=== PATIENT | female | born 1950 | race Caucasian/White ===

== ENCOUNTER 2016-04-29 15:15 | Emergency (ER) | payer BC ==
[~2016-04-29] VITALS: Wt 69.0 kg
--- NOTE | 2016-04-29 16:47 | ERD ---
ER Documentation Chief Complaint Date/Time DATE: 04/29/16 TIME: 16:35 Chief Complaint HEADACHE SINCE THIS MORNING . NO NEURO DEF. NAUSEA NO VOMITING HPI 65 y/o female presents to ED for headache that started this morning. Patient stated that pain started on her left neck at around 6:30 AM that woke her up, pain was described as stabbing 10/10 in rate. Her frontal/bilateral temporal headache started at around 11:30 AM, pain was described as severe, added that she never had this headache before. She also added that she has left upper back pain that is described as achy with a rate of 8/10 and worse on movement. Reports that she feels nauseous but no vomiting. Reports mild dizziness but does not feel like surrounding is moving. She also stated that she feels like associated but no vomiting. Denies loss of consciousness, head trauma, blurry vision, changes in vision, photophobia, ear pain, throat pain, difficulty swallowing, cough, hemoptysis, abdominal pain, back pain, loss of appetite, vomiting, hematochezia, diarrhea, constipation, urinary symptoms, bladder and bowel incontinences, extremity weakness, extremity tenderness, numbness or tingling sensation, difficulty walking, recent travel, recent exposure to illness, recent antibiotic use in the last 3 months, fever, chills. Allergy: NKA PMH: High cholesterol Family medical history: Denies Medications: Unknown Surgery: Primary Social History: Not working at this time Denies smoking, use of alcohol, use of illegal drugs. ROS All systems reviewed and are negative except as per history of present illness. Allergies Allergies: Coded Allergies: No Known Allergy (Unverified , 04/29/16) PMhx/Soc High cholesterol Medical and Surgical Hx: pt denies Medical Hx, pt denies Surgical Hx Hx Alcohol Use: No Hx Substance Use: No Hx Tobacco Use: No Smoking Status: Never smoker FmHx Denies Physical Exam Vitals Vital Signs Date Time Temp Pulse Resp B/P Pulse Ox O2 Delivery O2 Flow Rate FiO2 04/29/16 15:36 98.5 93 20 140/82 99 Physical Exam CONSTITUTIONAL: Generalized weakness HEAD: Normocephalic; atraumatic. EYES: Conjunctiva clear, sclera non-icteric, EOM intact. PERRL Ears: Hearing intact. EACs clear, TMs non-bulging, non-inflamed, translucent & mobile, ossicles normal appearance, No obstructions, no erythema, no discharges Nose: No obstructions. No polyps. No external lesions. Mucosa non-inflamed. No external lesions, septum and turbinates normal. No rhinorrhea. No discharges. Frontal sinus is non-tender to palpation. Maxillary sinus is non-tender to palpation. MOUTH: Moist mucous membranes, no lesion, no obstructions, no vesicles, no thrush, patent airway Throat: Uvula in midline. Right tonsil is +1 with no erythema, no exudate. Left tonsil is +1 with no erythema, no exudate. Tolerating secretions well. Good gag reflex. Patent airway. Neck: Supple, without lesions, bruits, or adenopathy. No mass. Thyroid non- enlarged and non-tender to palpation. CHEST: Symmetrical chest. Respirations even and not labored. No retractions noted. CARDIOVASCULAR: Normal S1, S2. RRR. No murmurs, gallops. RESPIRATORY: Normal chest excursion with respiration; breath sounds clear and equal bilaterally; no wheezes, rhonchi, or rales. Breathing even and unlabored. Speaking in clear, full, and complete sentences w/ ease. ABDOMEN: Normal bowel sounds normal. Soft, round, non-distended, non-guarding, no tenderness, no rebound, no organomegaly, no masses, no pulsating abdominal mass. No hernia. No peritoneal signs. : No CVA tenderness. BACK: Symmetrical shoulder. Spine is midline without deformity, tenderness. No evidence of trauma or deformity. PELVIS: Stable pelvis. No evidence of trauma or deformity. MUSCULOSKELETAL: Normal gait and station. No misalignment, asymmetry, crepitation, defects, tenderness, masses, effusions, decreased range of motion, instability, atrophy or abnormal strength or tone in the head, spine, ribs, pelvis or extremities. No calf tenderness. Noted mild tenderness to left neck. Full range of motion of neck but with mild discomfort on the left side. Mild tenderness to left neck to palpation. NEUROVASCULAR: Distal pulses are present. Pedal pulse are present, equal, and normal. Capillary refills are < 2 seconds. NEUROLOGIC: Alert and oriented x4. Speaks full and clear sentences. Generalized weakness. Cranial Nerves II-XII normal. Sensation to pain, touch, and proprioception normal. No neurologic deficits. Romberg test is negative. PSYCHOLOGICAL: The patients mood and manner are appropriate. No hallucinations , delusions. Not SI. Not HI. Has the capacity to decide for self SKIN: Normal for age and ethnicity; warm; dry; good turgor; no apparent lesions or exudates. No rashes, hives, discoloration. Intact. Results 24 hrs Laboratory Tests Test 04/29/16 16:50 Troponin I < 0.012ng/ml Current Medications Medications (Trade) Dose Ordered Sig/Vikram Route PRN Reason Start Time Stop Time Status Last Admin Dose Admin Sodium Chloride (NS) 1,000 ml @ 1,000 mls/hr Q1H STAT IV 04/29/16 19:10 04/29/16 20:09 04/29/16 19:19 Morphine Sulfate (morphine) 4 mg ONCE STAT IV 04/29/16 19:10 04/29/16 19:16 DC 04/29/16 19:19 Ondansetron HCl 4 mg 4 mg ONCE STAT IV 04/29/16 19:10 04/29/16 19:16 DC 04/29/16 19:19 Nicardipine HCl (Cardene Iv) 200 ml @ 50 mls/hr TITRATE IV 04/29/16 19:30 Procedures/MDM Examination: MUSCULOSKELETAL: Normal gait and station. No misalignment, asymmetry, crepitation, defects, tenderness, masses, effusions, decreased range of motion, instability, atrophy or abnormal strength or tone in the head, spine, ribs, pelvis or extremities. No calf tenderness. Noted mild tenderness to left neck. Full range of motion of neck but with mild discomfort on the left side. Mild tenderness to left neck to palpation. NEUROLOGIC: Alert and oriented x4. Speaks full and clear sentences. Generalized weakness. Cranial Nerves II-XII normal. Sensation to pain, touch, and proprioception normal. No neurologic deficits. Romberg test is negative. Case and medical management was discussed with supervising doctor, Dr. Balwinder Solano, who agreed with my diagnostic tests. Disease process, medical treatment was explained to the patient and family member. They verbalized understanding and agreed with the diagnostic tests, medical treatment, and follow-up care. EKG: Normal sinus rhythm. No evidence of acute myocardial infarction. Radiology: CT head: FINDINGS: There is age appropriate central and peripheral atrophy. There is no midline shift. There is no definite acute stroke. There is a small amount of hyperdensity in the left sylvian fissure compatible with acute subarachnoid hemorrhage. There is no hemorrhage within the basilar cisterns. There is no intraparenchymal hemorrhage. Visualized paranasal sinuses are clear. IMPRESSION: Small amount of subarachnoid hemorrhage in the left sylvian fissure. In the absence of trauma, an aneurysm rupture cannot be excluded. Recommend CT angiogram of of the head for further evaluation. CT cervical spine: FINDINGS: No fracture is identified. There is maintenance of height of the vertebral bodies. There is mild reversal of the normal cervical lordosis. Alignment is otherwise maintained. There is no spondylolisthesis. Limited evaluation of the canal contents is unremarkable. No significant degenerative changes are noted. Prevertebral soft tissues are unremarkable. IMPRESSION: 1. No fracture or subluxation. 2. Mild reversal of the normal cervical lordosis most commonly seen with spasm versus positioning. Blood works Treatment: Re-evaluation: Patient needs assistance in walking. Case, patient's history, my physical findings, diagnostic test results were discussed with Dr. Tunde Ramsay who accepted the care. Consultation: Differential diagnosis: Subarachnoid hemorrhage versus stroke/CVA versus migraine versus tension headache versus cluster headache versus meningitis versus acute hypertensive crisis versus cervical myofascial pain versus cervical disc disease versus acute myocardial infarction versus chest pain Medical decision [id number] y/o female presents to ED for headache that started this morning. Patient stated that pain started on her left neck at around 6:30 AM that woke her up, pain was described as stabbing 10/10 in rate. Her frontal/ bilateral temporal headache started at around 11:30 AM, pain was described as severe, added that she never had this headache before. She also added that she has left upper back pain that is described as achy with a rate of 8/10 and worse on movement. Reports that she feels nauseous but no vomiting. Reports mild dizziness but does not feel like surrounding is moving. She also stated that she feels like associated but no vomiting. Patient's complaint, history, presentation, physical findings, diagnostic test results are consistent with my final diagnosis of subarachnoid hemorrhage. During physical assessment prior to diagnostic test results patient's neurologic exam is within normal limits and has steady gait, Romberg test is negative but after that diagnostic test results I did a re-evaluation and patient needs assistance in walking. Departure Diagnosis: Primary Impression: Headache Additional Impression: Subarachnoid hemorrhage Condition: Critical OKSANA MAZARIEGOS Apr 29, 2016 16:47
--- NOTE | 2016-04-29 18:50 | RADRPT ---
PROCEDURE: CT cervical spine without contrast CLINICAL INDICATION: Pain TECHNIQUE: CT scan of the cervical spine was performed on a multidetector scanner. No IV contrast was administered. Coronal and sagittal reformatted images were obtained from the axial source imag es. Images were reviewed on a high-resolution PACS workstation. Exam CTDlvol = 22 mGy and DLP = 443 mGy-cm. COMPARISON: None available FINDINGS: No fracture is identified. There is maintenance of height of the vertebral bodies. There is mild r eversal of the normal cervical lordosis. Alignment is otherwise maintained. There is no spondyloli sthesis. Limited evaluation of the canal contents is unremarkable. No significant degenerative kendrick nges are noted. Prevertebral soft tissues are unremarkable. IMPRESSION: 1. No fracture or subluxation. 2. Mild reversal of the normal cervical lordosis most commonly seen with spasm versus positioning. RPTAT: HMVK .Elieser Waggoner MD, Date Time Electronically viewed and signed by .Elieser Waggoner MD, MD on 04/29/2016 18:50 .K/
--- NOTE | 2016-04-29 18:58 | RADRPT ---
PROCEDURE: CT Brain without IV contrast. CLINICAL INDICATION: Headache. TECHNIQUE: A CT of the brain was performed on a multislice detector CT scanner utilizing axial sec tions from the skull base through the vertex without contrast. Images were reviewed on a high-resolu [employer] PACS workstation. Exam CTDlvol = 44 mGy-cm and DLP = 630 mGy-cm. COMPARISON: None available FINDINGS: There is age appropriate central and peripheral atrophy. There is no midline shift. There is no de finite acute stroke. There is a small amount of hyperdensity in the left sylvian fissure compatible with acute subarachnoid hemorrhage. There is no hemorrhage within the basilar cisterns. There is no intraparenchymal hemorrhage. Visualized paranasal sinuses are clear. IMPRESSION: Small amount of subarachnoid hemorrhage in the left sylvian fissure. In the absence of trauma, an a neurysm rupture cannot be excluded. Recommend CT angiogram of of the head for further evaluation. Findings discussed with Dr. Kelley 04/29/2016 at 18:55 RPTAT: HMVK .Elieser Waggoner MD, MD Date Time Electronically viewed and signed by .Elieser Waggoner MD, MD on 04/29/2016 18:58 .K/
[2016-04-29] MEDS ORDERED: SOD CHLORIDE 0.9% 1,000 ML IV STA (19:10)
[2016-04-29] MEDS ORDERED: ONDANSETRON 4 MG INJ IV STA (19:10)
[2016-04-29] MEDS ORDERED: morphine 4 MG/ML VIAL IV STA (19:10)
[2016-04-29] MEDS ORDERED: niCARdipine-D5W 0.1MG/ML DRIP 200 ML IV SCH (19:30)
[2016-04-29] MEDS ORDERED: IOHEXOL 100 ML ONE (19:43)
[2016-04-29] MEDS ORDERED: SOD CHLORIDE 0.9% 100 ML ONE (19:43)
[2016-04-29 20:08] LABS: BASOPHILS % 0.5 % (0.0-2.0); EOSINOPHILS % 0.1 % (0.0-7.0); HEMATOCRIT 37.1 % (37.0-47.0); HEMOGLOBIN 12.6 g/dl (12.0-16.0); INR 1.09; LYMPHOCYTES # 2.5 10^3/ul (0.8-2.9); LYMPHOCYTES % 26.6 % (15.0-51.0); MEAN CORPUSCULAR HEMOGLOBIN 30.4 pg (29.0-33.0); MEAN CORPUSCULAR HGB CONC 34.1 g/dl (32.0-37.0); MEAN CORPUSCULAR VOLUME 89.3 fl (82.0-101.0); MEAN PLATELET VOLUME 8.4 fl (7.4-10.4); MONOCYTE # 0.5 10^3/ul (0.3-0.9); MONOCYTES % 5.1 % (0.0-11.0); NEUTROPHIL # 6.4 10^3/ul (1.6-7.5); NEUTROPHILS % 67.7 % (39.0-77.0); PLATELET COUNT 206 10^3/UL (140-440); PROTIME 14.1 Sec (12.2-14.2); PT RATIO 1.1; RED BLOOD COUNT 4.15 10^6/ul (4.20-5.40); RED CELL DISTRIBUTION WIDTH 12.8 % (11.5-14.5); UNCORRECTED WBC 9.4 10^3/ul (4.8-10.8); WHITE BLOOD COUNT 9.4 10^3/ul (4.8-10.8)
[2016-04-29 20:09] LABS: CONDITION 1
--- NOTE | 2016-04-29 20:19 | RADRPT ---
PROCEDURE: CT Angio Brain with contrast. CLINICAL INDICATION: Subarachnoid hemorrhage TECHNIQUE: CT angiography of the head was performed. High resolution serial axial CT images of t he head were obtained after the administration of 85 cc Omnipaque 350 IV contrast material. 3D, sagi ttal and coronal reconstruction images were produced. Exam CTDlvol = 127 mGy and DLP = 497 mGy-cm. COMPARISON: CT brain 04/29/2016 FINDINGS: All major intracranial arteries are identified. There is a 7.3 x 6.1 x 9 mm saccular aneurysm at the distal aspect of the left M1 segment of the left middle cerebral artery. Interim is oriented anteri or and inferior from the artery. No vascular malformation is identified. No pathologic stenosis is identified. There is a dominant left vertebral artery. Limited evaluation of the intracranial jeff nts is unremarkable. 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 Findings discussed with Dr. Ramsay 04/29/2016 at 20:15 RPTAT: HMVK .Elieser Waggoner MD, MD Date Time Electronically viewed and signed by .Elieser Waggoner MD, on 04/29/2016 20:19 .K/
--- NOTE | 2016-04-29 20:30 | RADRPT ---
PROCEDURE: XR Chest. CLINICAL INDICATION: Abdominal pain TECHNIQUE: AP Portable chest. COMPARISON: No pertinent prior examinations were submitted for comparison. FINDINGS: There is mild cardiomegaly. The lungs are clear. The osseous structures are unremarkable. IMPRESSION: No acute findings. RPTAT: HIKT .Anjel Zurita MD, Date Time Electronically viewed and signed by .Anjel Zurita MD, on 04/29/2016 20:30 .T/
--- NOTE | 2016-04-29 20:59 | EN ---
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 She states this headache is new , denies previous episodes, and states it has been constant since it began. She states she has been feeling dizzy and nauseous since the headache began. Early this morning when she woke up she did have left shoulder and left trapezius pain although denied headache. She denies fevers or chills, no weakness in her arms or legs, no slurred speech, no blurry vision. CT scan of the brain was performed revealing acute left subarachnoid hemorrhage with blood in the sylvian fissure. Past medical history: Hypertension Physical exam: GENERAL: Well-developed, well-nourished, moderate disc HEENT: Moist mucous membranes, pink conjunctiva, no cervical spine tenderness or step-off deformities, no goiter, no jaundice or icterus, extraocular movements intact without pain. No submandibular induration, and no pharyngeal erythema NEURO: Alert and oriented 3, cranial nerves II through XII intact bilaterally, pupils equal round reactive to light, no focal deficits or facial asymmetry, sensation intact distally Strength 5/5 in upper and lower extremities bilaterally, there is no pronator drift, no nystagmus, no cerebellar signs CARDIAC: Regular rate and rhythm, no murmurs rubs or gallops LUNGS: Clear bilaterally no wheezing crackles or stridor ABDOMEN: Soft nontender, no guarding, no rigidity, no rebound, no psoas sign no obturator sign. Normoactive bowel sounds SKIN: Warm and dry to touch, no abrasions, contusions, or hematomas, no lacerations, no ecchymosis, no target lesions, and without ulcers EXTREMITIES: No clubbing cyanosis or edema, calves are bilaterally symmetrical, no Homans sign, no popliteal cord sign. Distal pulses equal and bilateral PSYCH: Normal affect without agitation or irritability Medical decision making: IV line was established patient was placed on surveillance monitor rhythm strip revealed a sinus rhythm at about 80 bpm with upright P and T waves. I administered 1 L normal saline intravenously, morphine 4 mg IV, and Zofran 4 mg IV with good effect. Nicardipine drip was also ordered by me to be administered if systolic blood pressure goes above 160 mmHg. EKG performed, read by me: 73 bpm, normal sinus rhythm, normal axis, no acute ST segment changes, narrow QRS complex, with good R-wave progression in precordial leads. I ordered immediate CT angiogram of the cerebrum, it revealed blood in the left sylvian fissure and a left MCA trifurcation saccular aneurysm measuring 9 x 7 x 6 mm. Emergent neurosurgical consultation was obtained by me. I spoke to Dr. Burden regarding the CT findings and the patient's symptoms, he agreed to have the patient transferred to [facility] and treated neuro endovascularly. Critical Care: Time: 33 minutes, this was time separate from other procedures. Treatments/Evaluations: Close monitoring and treatment of unstable vital signs, cardiorespiratory, and neurologic status, while maintaining tight balance of fluid, respiratory, and cardiac interventions. CBC and electrolytes were normal, liver function tests were normal, coagulation profile revealed an INR of 1, troponin was negative. Urine analysis is also been ordered results are pending I will follow-up. Patient is pending transport to [facility] at this time, headache has resolved, vital signs remained normal. Diagnostic impression: Acute left MCA ruptured aneurysm and subarachnoid hemorrhage LIN NORTH MD Apr 29, 2016 20:59
[2016-04-29 21:19] LABS: ALBUMIN 3.9 g/dl (3.3-4.9)
[2016-04-29 21:20] LABS: CHLORIDE 105 mmol/L (97-110); SODIUM 144 mmol/L (135-144)
[2016-04-29 21:22] LABS: ALBUMIN/GLOBULIN RATIO 1.25; ALKALINE PHOSPHATASE 81 IU/L (42-121); ANION GAP 15 (8-16); ASPARTATE AMINO TRANSFERASE 28 IU/L (15-46); BILIRUBIN,INDIRECT 0.2 mg/dl (0-1.1); BILIRUBIN,TOTAL 0.2 mg/dl (0.2-1.3); CARBON DIOXIDE 28 mmol/L (21-31); CREATININE 0.63 mg/dl (0.44-1.00)
[2016-04-29 21:23] LABS: ALANINE AMINOTRANSFERASE 27 IU/L (13-69); BLOOD UREA NITROGEN 13 mg/dl (7-20); CALCIUM 9.4 mg/dl (8.4-10.2); GLUCOSE 91 mg/dl (70-220)
[2016-04-29 21:35] LABS: TROPONIN-I < 0.012 ng/ml (0.00-0.12)
[2016-04-29 21:58] LABS: ADD UMIC YES; URINE BILIRUBIN (Dip) NEGATIVE (NEGATIVE); URINE BLOOD (Dip) TRACE (NEGATIVE); URINE COLOR LT. YELLOW (YELLOW); URINE GLUCOSE (Dip) NEGATIVE (NEGATIVE); URINE KETONES (Dip) NEGATIVE (NEGATIVE); URINE LEUKOCYTE ESTERASE (Dip) NEGATIVE (NEGATIVE); URINE NITRITE (Dip) NEGATIVE (NEGATIVE); URINE TOTAL PROTEIN (Dip) NEGATIVE (NEGATIVE); URINE UROBILINOGEN (Dip) 0.2 E.U./dL (0.1-1.0)
[2016-04-29 22:14] LABS: SQUAMOUS EPITHELIAL CELL,UR FEW
[2016-04-29] MEDS ORDERED: LEVETIRACETAM IV 1,000 MG in DEXTROSE 5% 100 ML IVPB ONE (23:00)
== END 2016-04-29 23:24 | disposition short-term general hospital (02) ==
LOC: FTE 15:15 → E/R 23:24
DX: R51 Headache (principal); I60.9 Nontraumatic subarachnoid hemorrhage, unspecified; R11.0 Nausea; R42 Dizziness and giddiness
CPT/HCPCS: 70450; 70496; 71010; 72125; 80053; 81001; 83690; 84484; 85025; 85610; 93005; J1953; J2270; J2405; J7030; Q9967; Z7610; 36415; 81003; 96374; 96375